=== PATIENT | male | born 1960 | race Caucasian/White ===

== ENCOUNTER 2023-04-05 13:58 | Outpatient (RCR) | payer OTHER, SELFPAY | END 2023-04-05 23:59 | disposition home or self-care (01) | LOC: RPT 13:58 | PROVIDERS: ATTENDING PHYSICIAN Emergency Medicine Sports Medicine; FAMILY PHYSICIAN Family Medicine | DX: S83.412D Sprain of medial collateral ligament of left knee, subsequent encounter (principal); S93.402D Sprain of unspecified ligament of left ankle, subsequent encounter; Z73.6 Limitation of activities due to disability | CPT/HCPCS: 97110; 97162; 97535 ==

== ENCOUNTER 2023-04-26 15:16 | Outpatient (RCR) | payer OTHER, SELFPAY | END 2023-04-26 23:59 | disposition home or self-care (01) | LOC: RPT 15:16 | PROVIDERS: ATTENDING PHYSICIAN Emergency Medicine Sports Medicine; FAMILY PHYSICIAN Family Medicine | DX: S83.412D Sprain of medial collateral ligament of left knee, subsequent encounter (principal); S93.402D Sprain of unspecified ligament of left ankle, subsequent encounter; Z73.6 Limitation of activities due to disability | CPT/HCPCS: 97110 ==